=== PATIENT | female | born 1985 | race American Indian/Alaskan Native ===

== ENCOUNTER 2021-09-17 09:27 | Emergency (ER) | payer MEDICARE, MEDICAID ==
[~2021-09-17] VITALS: Ht 170.2 cm; Wt 75.0 kg
[~2021-09-17 09:27] MED LIST: ALPR-624 PO
[2021-09-17 09:57] VITALS: BP 119/83
== END 2021-09-17 14:11 | disposition left against medical advice (07) ==
LOC: ER 09:27
DX: R10.30 Lower abdominal pain, unspecified (principal); Z53.21 Procedure and treatment not carried out due to patient leaving prior to being seen by health care provider

== ENCOUNTER 2025-04-20 09:42 | Emergency (ER) | payer MEDICARE, MEDICAID ==
[~2025-04-20] VITALS: Ht 170.2 cm; Wt 90.9 kg
[2025-04-20 09:45] VITALS: TEMP 98.1
[2025-04-20 10:28] VITALS: BP 135/84; O2SAT 99
--- NOTE | 2025-04-20 11:26 | Physician Documentation ---
History of Present Illness Chief Complaint: Abdominal Pain Stated Complaint: IUD COMPLICATIONS Time Seen by MD: 11:17 Primary Medical Doctor: Charles Villanueva Source: patient Mode of Arrival: POV Exam Limitations: no limitations HPI Patient presents secondary to her IUD coming out. She states she has an IUD, ParaGard for the past 12 years and that this morning she noted it had come out a little bit. She has had cramps and spotting for the past week. Last Pap smear was July 2024. No menstrual cycle for the past 12 years given her IUD. She has nausea which she associates with the pain from cramping. Was asked, but otherwise denies review of systems. Medication Reconciliation Allergies: Coded Allergies: ibuprofen (Verified Allergy, Intermediate, 04/20/25) Sulfa (Sulfonamide Antibiotics) (Verified Allergy, Unknown, 04/20/25) Scheduled PRN Alprazolam* (Xanax*), 1 MG PO DAILY PRN, (Reported) Past Medical History Past Medical History: Chronic Pain, Anxiety Past Surgical History: no surgical history Smoking Status: Current every day smoker Alcohol Use: None Drug Use: none Lives with: Alone Lives In: Home Occupation: disabled Review of Systems ROS Complains of lower abdominal pain and nausea. No fevers, chills. Otherwise, denies review of systems. Physical Exam Vital Signs: RN Vital Signs have been reviewed: Yes, Temperature: 98.1, Source: Temporal, Heart Rate: 98, Respiratory Rate: 15, BP: 135/84, Pulse Oximetry: 99, Weight: 90.910 Pulse Oximetry Reflects: adequate oxygenation Physical Exam General: Awake, alert, oriented. No apparent distress Respiratory: Lungs are clear to auscultation bilaterally. No respiratory distress. Chest: Normal shape and size. No accessory muscle use. Cardiovascular: Regular rate and rhythm. S1-S2. No murmur, gallop, rub. Gastrointestinal: Pain with palpation over the lower quadrants. Mildly tender. Bowel sounds positive. Abdomen nondistended. Psychiatric: Normal mood and affect. Skin: Normal color. Warm and dry. Procedures Procedures Back exam was performed. There is white discharge noted. The IUD string was visualized. There is a ball of hair that is attached to the string. It appears to be human hair. At the patient's request the IUD was removed. Patient tolerated well. Like exam performed went with supervision of cardiograph operator, EMIGDIO Deng. Progress Results/Orders Results/Orders Vital Signs 04/20/25 04/20/25 09:45 10:28 Temp 98.1 Pulse 119 98 Resp 16 15 B/P (MAP) 145/103 135/84 (101) Pulse Ox 98 99 Medical Decision Making Findings Patient presented secondary to cramping abdominal pain. He felt what she thought was her IUD hanging out. She had requested further evaluation with regards to this. Her IUD has been in for 12 years. Is a ParaGard and usually has a 10 year life expectancy. On physical exam her IUD string was visualized but her IUD was not coming out. At her request the IUD was removed. The IUD was removed at her request without incident and she tolerated well. She was encouraged to use it alternative form of control and follow up with her primary care provider. She had stated to had some minimal abdominal cramping and spotting. This can be normal with a ParaGard. I do not suspect an acute intra-abdominal emergency. Warning signs and symptoms were reviewed. She was encouraged to follow up with her primary care provider with regards to above. Return for new or worsening symptoms. Differential Dx:Considerations: Include: -Complete, - Incomplete, -Inevitable, -Missed, -Threatened, Abruptio placentae, Hernia, Inflammatory BD, Ischemic bowel, Ovarian cyst/torsion, PID, Urinary tract infection Departure Time of Disposition: 12:09 Impression: Primary Impression: Foreign body Additional Impression: Encounter for IUD removal Additional Instructions: IUD was removed today. You may experience some cramping and spotting which is normal. Recommend taking ibuprofen/Tylenol [id number] for minor pain. Follow up with your primary care provider for alternate forms of control. In the interim you should use a barrier method. Return for new or worsening symptoms. Referrals: NO PRIMARY CARE PROVIDER (PCP) Education Educated: Patient Educated regarding: diagnosis, treatment, need for follow up Signature Scribe Signature: No scribe Attestation: The note accurately reflects work and decisions made by me.George Pires - SCOTTIE 04/20/25 19:55 GEORGE PIRES NP Apr 20, 2025 11:26
[2025-04-20] MEDS ORDERED: ibuprofen tablet 400 MG TABLET PO ONE (12:10)
[2025-04-20] MEDS: ibuprofen tablet 400 MG TABLET PO ONE (12:21)
[2025-04-20 12:23] VITALS: PULSE 72; RESP 16
== END 2025-04-20 12:28 | disposition home or self-care (01) ==
LOC: ER 09:43
DX: T19.8XXA Foreign body in other parts of genitourinary tract, initial encounter (principal); Z30.432 Encounter for removal of intrauterine contraceptive device; F17.200 Nicotine dependence, unspecified, uncomplicated; W44.8XXA Other foreign body entering into or through a natural orifice, initial encounter
CPT/HCPCS: 99283

== ENCOUNTER 2025-05-29 08:38 | Emergency (ER) | payer MEDICARE, MEDICAID ==
[~2025-05-29] VITALS: Ht 170.2 cm; Wt 81.8 kg
[2025-05-29 08:47] VITALS: BP 145/99; PULSE 100; RESP 18; TEMP 97.2; O2SAT 100
--- NOTE | 2025-05-29 08:56 | Physician Documentation ---
History of Present Illness ~ Chief Complaint: Foreign body Stated Complaint: RECHECK Time Seen by MD: 08:55 Primary Medical Doctor: Charles Villanueva [facility] This is a 39-year-old female who presents to the emergency department, reportedly at the direction of her primary care provider at [facility]. She reports that she had her IUD removed here in his emergency department within the last two weeks. It is continue to experience some pain and cramping, had an ultrasound done, was told that a piece of the IUD is retained. Denies fevers or chills. Medication Reconciliation Allergies: Coded Allergies: ibuprofen (Verified Allergy, Intermediate, 05/29/25) Sulfa (Sulfonamide Antibiotics) (Verified Allergy, Unknown, 05/29/25) Scheduled PRN Alprazolam* (Xanax*), 1 MG PO DAILY PRN, (Reported) Lorazepam (Ativan), 1 TAB PO ONCE PRN for procedure Past Medical History Past Medical History: Chronic Pain, Anxiety Past Surgical History: no surgical history Alcohol Use: None Drug Use: none Lives with: Alone Lives In: Home Occupation: disabled Review of Systems ROS As stated above in the HPI, otherwise all systems are reviewed and negative. Physical Exam Vital Signs: Temperature: 97.2, Source: Temporal, Heart Rate: 100, Respiratory Rate: 18, BP: 145/99, Pulse Oximetry: 100, Weight: 81.820 Physical Exam General: Alert, no apparent distress. Neck: Full range of motion. Respiratory: Lungs clear, no respiratory distress. Chest: No accessory muscle use. Cardiovascular: Regular rate and rhythm, no murmurs. Gastrointestinal: Soft, nontender, nondistended. Bowels sounds present. Extremities: Normal range of motion, no deformity. Neurologic: Oriented x4. Psychiatric: Normal mood and affect. Skin: Normal color, warm and dry. No edema, no ecchymosis. Progress Progress Note Obtained a report from the patient's pelvic ultrasound from 05/22/2025, It shows the following impression : No discrete myometrial mass was seen on transabdominal pelvic ultrasound normal endometrial stripe and thickness small linear echogenic structure seen at the right side of the uterus within the endometrial canal which appears to extend into the myometrium and could represent a broken or retained fragment of the previous IUD no evidence of masses or free fluid in the cul-de-sac. Results/Orders Results/Orders Orders - NIKKI CASTRO NP Pelvic Set Up (05/29/25 ) Vital Signs 05/29/25 08:47 Temp 97.2 Pulse 100 Resp 18 B/P (MAP) 145/99 Pulse Ox 100 Medical Decision Making Additional Comment 39 yr old female who presented the direction of her primary care provider, who reported that a recent ultrasound showed small retained portion of her IUD. She had only one complaint, which was intermittent cramping. She denies fevers or chills, nausea or vomiting, any other concerns. Gas Station Attendant Dr. Richard Kaufman was contacted, agreed to see the patient early next week. She was given his contact information as well as a copy of her ultrasound to take to the appointment. Due to her concerns for anxiety surrounding removal of the IUD fragment, she was also sent with a prescription for a one time dose of lorazepam to be taken prior to the procedure. Departure Time of Disposition: 09:43 Disposition: 01 HOME / SELF CARE / HOMELESS Impression: Primary Impression: Foreign body Additional Impression: retained portion of iud Condition: Stable Discharge Instructions: Foreign Body, Vaginal Additional Instructions: You were provided with a copy of your ultrasound. Dr. Richard Kaufman Was contacted on the phone agrees to see you next week parent please call his office, let the staff know that he was contacted and agreed to see you early next week. Take the copy of the ultrasound with you. You were given lorazepam. Pick this up, take it with you to the appt to utilize it prior to the planned IUD removal. Returned to the ER with any emergent issues or other concerns Referrals: NO PRIMARY CARE PROVIDER (PCP) RICHARD KAUFMAN MD Prescriptions Lorazepam (Ativan) 1 Mg Tablet 1 TAB PO ONCE PRN for procedure for 1 Day, #1 TAB 0 Refills Prov: NIKKI CASTRO NP 05/29/25 Education Educated: Patient, Family Educated regarding: diagnosis, treatment, prognosis, need for follow up Signature Scribe Signature: x Attestation: The note accurately reflects work and decisions made by me.Nikki Castro - SCOTTIE 05/29/25 10:16 NIKKI CASTRO NP May 29, 2025 08:56
[2025-05-29] MEDS ORDERED: LORA-269 PO (09:55)
== END 2025-05-29 10:09 | disposition home or self-care (01) ==
LOC: ER 08:38
DX: S30.854A Superficial foreign body of vagina and vulva, initial encounter (principal); G89.29 Other chronic pain; F41.9 Anxiety disorder, unspecified; Z88.6 Allergy status to analgesic agent; Z88.2 Allergy status to sulfonamides; Z60.2 Problems related to living alone; X58.XXXA Exposure to other specified factors, initial encounter; Y93.89 Activity, other specified; Y92.89 Other specified places as the place of occurrence of the external cause; Y99.8 Other external cause status
CPT/HCPCS: 99284